=== PATIENT | female | born 1980 | race Caucasian/White ===

== ENCOUNTER 2023-08-20 11:43 | Emergency (ER) | payer BC, SELFPAY ==
[2023-08-20] VITALS (16 sets, daily range): BP systolic 99–113; BP diastolic 58–71; PULSE 88–122; RESP 16–18; TEMP 36.8–38.2; O2SAT 95–98; BMI 37.8
[2023-08-20 12:46] LABS: PCR FLU A Negative PCR FLU A (Negative); PCR FLU B Negative PCR FLU B (Negative); SARS PCR* Negative SARS-CoV-2 (Negative)
[2023-08-20 13:10] LABS: Appearance Urine Clear (Clear); Bilirubin Urine 1+ (Negative); Blood Urine 2+ (Negative); Color Urine Orange (Yellow); Glucose Urine Negative (Negative); Ketones Urine 1+ (Negative); Leukocyte Esterase Urine 1+ (Negative); Nitrite Urine Negative (Negative); Protein Urine 2+ (Negative); Specific Gravity Urine >= 1.030 (1.000-1.030); Urobilinogen Urine 0.2 (0.2-1.0); pH Urine 5.5 (5.0-8.5)
[2023-08-20 13:22] LABS: Bacteria Urine Moderate; Squamous Epithelial Cell Urine Few (None-Few)
[2023-08-20 14:15] LABS: Lactate* 1.1 mmol/L (0.5-1.9)
[2023-08-20] MEDS: 0.9 % SODIUM CHLORIDE 1000 ml 1,000 ML IV (14:15)
[2023-08-20 14:17] LABS: Basophils Absolute Auto 0.02 K/uL (0.00-0.30); Basophils Percent Auto 0.3 % (0.0-3.0); Hematocrit 37.6 % (33.0-51.0); Hemoglobin* 12.6 gm/dL (12.0-16.0); Immature Granulocytes Abs Auto 0.01 K/uL (0.00-0.30); Immature Granulocytes Pct Auto 0.1 %; Mean Corpuscular HGB Conc 34 gm/dL (32-36); Mean Corpuscular Hemoglobin 31 pg (26-34); Mean Corpuscular Volume 93 fL (80-100); Monocytes Percent Auto 0.8 % (0.0-11.0); Neutrophils Percent Auto 94.8 % (42.0-72.0); Platelet Count* 164 K/uL (140-440); RDW Coefficient of Variation % 12.6 % (11.5-15.5); Red Blood Count 4.04 m/uL (4.00-5.20); White Blood Count* 7.31 K/uL (4.50-11.00)
[2023-08-20 14:20] LABS: Anion Gap 11 mEq/L (7-15); Carbon Dioxide* 22 mmol/L (20-32); Chloride* 104 mmol/L (96-114); Glucose* 91 mg/dL (60-115); Sodium* 137 mmol/L (135-149)
[2023-08-20 14:22] LABS: Slide Review Reflex No
--- NOTE | 2023-08-20 14:26 | ED.GENADULT ---
HPI - General Adult General Date Seen: 08/20/23 Chief complaint: Fever Stated complaint: Fever, aches Time Seen by Provider: 08/20/23 13:37 Source: patient Mode of arrival: ambulatory Limitations: no limitations History of Present Illness HPI narrative: Patient is a 42-year-old generally healthy woman who presents for evaluation of fever with onset yesterday morning. She says she had taken a shower and when she got out she felt chilled. She checked her temperature and says throughout the day she had fevers from 103-107 with her tympanic thermometer. She had some chills, little bit of body aches but otherwise no focal symptoms. She specifically denies headache, cough, shortness of breath, or urinary symptoms. She did say that she noted a little bit of pelvic discomfort when she leaned forward. She has had a decreased appetite and has vomited once. No rashes or other skin changes. She has seen lots of wood ticks on an around her dogs this summer but no known deer tick exposure. Related Data Previous Rx's Medication Instructions Recorded ciprofloxacin HCl 500 mg tablet 500 mg PO BID #14 tabs 08/20/23 potassium chloride 20 mEq 20 meq PO DAILY #7 tabs 08/20/23 tablet,extended release Allergies Allergy/AdvReac Type Severity Reaction Status Date / Time No Known Drug Allergies Allergy Verified 08/20/23 11:56 Review of Systems Status of ROS: Reports: 10 or more systems reviewed and unremarkable except as noted in History and below [facility] Social History service: No Exam Narrative: Exam Narrative: Vital signs as noted above. In general, an alert, well-appearing patient. Head: Normocephalic, atraumatic. Eyes: Pupils are equal reactive. Extraocular movements are full. Conjunctivae are normal. ENT: Mucous membranes are moist. Throat is normal. Neck: Supple without lymphadenopathy. Heart: Regular rate and rhythm. No murmur or rub. Lungs: Clear bilaterally. No increased work of breathing, crackles or wheezes. Abdomen: Soft and nontender. No organomegaly. No CVA tenderness. Extremities: Well perfused. No edema. No calf tenderness. Pulses intact. Neurologic: Patient is alert and oriented to person and place. Speech is fluent. Face is symmetric. Moves all extremities equally. Affect: Normal. Skin: Warm and dry. Well perfused. Const: Vital Signs, click to edit/add: Vital Signs - 24 hr 08/20/23 11:56 08/20/23 13:32 08/20/23 13:33 Temperature 100.7 F H 98.2 F Pulse Rate 95 97 Pulse Rate [Pulse Oximeter] 122 H Respiratory Rate 18 Blood Pressure 108/62 Blood Pressure [Ri ght Upper Arm] 113/67 Pulse Oximetry 97 95 96 Oxygen Delivery Me thod Room Air 08/20/23 13:34 08/20/23 13:34 08/20/23 13:35 Temperature 98.2 F Pulse Rate 89 90 Pulse Rate [Pulse Oximeter] Respiratory Rate Blood Pressure 109/58 L Blood Pressure [Ri ght Upper Arm] Pulse Oximetry 97 96 Oxygen Delivery Me thod 08/20/23 13:45 08/20/23 14:00 08/20/23 14:01 Temperature Pulse Rate 94 88 90 Pulse Rate [Pulse Oximeter] Respiratory Rate Blood Pressure 99/58 L Blood Pressure [Ri ght Upper Arm] Pulse Oximetry 96 96 96 Oxygen Delivery Me thod 08/20/23 14:07 08/20/23 14:15 08/20/23 14:30 Temperature Pulse Rate 94 90 89 Pulse Rate [Pulse Oximeter] Respiratory Rate Blood Pressure 100/60 Blood Pressure [Ri ght Upper Arm] Pulse Oximetry 97 97 96 Oxygen Delivery Me thod 08/20/23 14:32 08/20/23 14:45 Temperature Pulse Rate 90 90 Pulse Rate [Pulse Oximeter] Respiratory Rate Blood Pressure 101/68 Blood Pressure [Ri ght Upper Arm] Pulse Oximetry 97 97 Oxygen Delivery Me thod Course Course ED Course: While waiting in triage a UA was done as well as COVID/RSV/influenza. Respiratory virus panel is negative. UA is notable for 1+ ketones, 1+ leukocyte esterase, 2-5 red cells and 5-10 white cells. Moderate bacteria. She does not have any flank pain or CVA tenderness to suggest pyelonephritis, does not specifically complain of symptoms suggestive of UTI. Her white blood cell count is normal at 7.3 although she does have a left shift with 95% neutrophils. Potassium is somewhat low at 3. She was given 50 mEq of potassium here. Our chemistry machine is down. I did get her CRP back and that is elevated at 7, but LFTs are going to be delayed at least an hour. She has already been here several hours secondary to high ER volumes and a long triage weight, and she would just as soon go home. She does not have any right upper quadrant pain or tenderness, my suspicion for cholecystitis, hepatitis, ascending cholangitis etcetera is pretty low. At this time, cause of her fever is unclear. Certainly still could be viral, discussed that the COVID test initially can be negative and free checked in a couple days maybe positive. However, given the elevated CRP and the significant left shift I do not think a bacterial cause can be entirely excluded. Urine is slightly abnormal. She has a little bit of pain in the right flank but this is chronic for her and she does not have CVA tenderness. I have relatively low suspicion of pyelonephritis but she would prefer to treat for that possibility and see how she does. Her abdominal exam is entirely benign, she does not have any abdominal or pelvic tenderness at all, making a surgical cause for her fever such as appendicits, cholecystits etc. less likely. Plan at this time is to treat with Cipro, blood cultures were obtained. Primary care follow-up in a few days if fever persists, but discussed that if fever is due to viral causes the antibiotic will not make a difference. As of right now, tick-borne illness does not seem highly likely, but would remain something to check if fever is persistent. Discussed with her if at any time she is feeling worse, has severe pain, vomiting, or other new symptoms, she should return to the emergency department for re-evaluation. Vital Signs Vital signs: Initial Vital Signs Temperature 100.7 F H 08/20/23 11:56 Temperature Source Temporal Artery Scan 08/20/23 11:56 Pulse Rate 122 H 08/20/23 11:56 Respiratory Rate 18 08/20/23 11:56 Blood Pressure 113/67 08/20/23 11:56 Blood Pressure Mean 82 08/20/23 11:56 Blood Pressure Position Sitting 08/20/23 11:56 Pulse Oximetry 97 08/20/23 11:56 Oxygen Delivery Method Room Air 08/20/23 11:56 Vital Signs Temperature 100.7 F H 08/20/23 11:56 Pulse Rate 122 H 08/20/23 11:56 Respiratory Rate 18 08/20/23 11:56 Blood Pressure 113/67 08/20/23 11:56 Pulse Oximetry 97 08/20/23 11:56 Oxygen Delivery Method Room Air 08/20/23 11:56 Temperature 98.3 F 08/20/23 15:15 Pulse Rate 91 08/20/23 15:15 Respiratory Rate 16 08/20/23 15:15 Blood Pressure 105/71 08/20/23 15:01 Pulse Oximetry 95 08/20/23 15:15 Oxygen Delivery Method Room Air 08/20/23 11:56 Medical Decision Making Lab Data Labs: Lab Results 08/20/23 08/20/23 08/20/23 Range/Units 12:00 13:00 14:10 WBC 7.31 (4.50-11.00) K/uL RBC 4.04 (4.00-5.20) m/uL Hgb 12.6 (12.0-16.0) gm/dL Hct 37.6 (33.0-51.0) % MCV 93 (80-100) fL MCH 31 (26-34) pg MCHC 34 (32-36) gm/dL RDW Coeff of [place]ya 12.6 (11.5-15.5) % Plt Count 164 (140-440) K/uL Neut % (Auto) 94.8 H (42.0-72.0) % Lymph % (Auto) 4.0 L (20-44) % [place] % (Auto) 0.8 (0.0-11.0) % Eos % (Auto) 0.0 (0.0-7.0) % Baso % (Auto) 0.3 (0.0-3.0) % Neut # (Auto) 6.90 (1.7-7.0) K/uL Lymph # (Auto) 0.30 L (0.90-2.90) K/uL [place] # (Auto) 0.10 (0.00-0.90) K/UL Eos # (Auto) 0.00 (0.00-0.50) K/uL Baso # (Auto) 0.02 (0.00-0.30) K/uL Abs Immat Gran (auto) 0.01 (0.00-0.30) K/uL Imm/Tot Granulo (auto) 0.1 % Sodium 137 (135-149) mmol/L Potassium 3.0 L (3.6-5.1) mmol/L Chloride 104 (96-114) mmol/L Carbon Dioxide 22 (20-32) mmol/L Anion Gap 11 (7-15) mEq/L BUN 15 (5-24) mg/dL Creatinine 0.9 (0.5-1.5) mg/dL Estimated Creat Clear 69.60 Estimated GFR 81 ml/min Glucose 91 (60-115) mg/dL Lactate 1.1 (0.5-1.9) mmol/L Calcium 8.8 (8.4-10.6) mg/dL Total Bilirubin 1.1 (0.1-1.5) mg/dL Direct Bilirubin 0.1 (0.0-0.5) mg/dL AST 37 H (12-35) U/L ALT 19 (4-35) U/L Alkaline Phosphatase 73 (40-150) U/L C-Reactive Protein 7.1 H (0.5-1.0) mg/dL Total Protein 7.3 (6.0-8.3) g/dL Albumin 4.1 (3.3-5.0) g/dL Urine Color [place] A (Yellow) Urine Appearance Clear (Clear) Urine pH 5.5 (5.0-8.5) Ur Specific [place] >= 1.030 (1.000-1.030) Urine Protein 2+ A (Negative) Urine Glucose (UA) Negative (Negative) Urine Ketones 1+ A (Negative) Urine Blood 2+ A (Negative) Urine Nitrite Negative (Negative) Urine Bilirubin 1+ A (Negative) Urine Urobilinogen 0.2 (0.2-1.0) Ur Leukocyte Esterase 1+ A (Negative) Urine RBC 2-5 A (0-2) Urine WBC 5-10 A (0-5) Ur Squamous Epith Cells Few (None-Few) Urine Bacteria Moderate A (None) SARS-CoV-2 (PCR) Negative SARS-CoV-2 (Negative) Influenza Type A (PCR) Negative PCR FLU A (Negative) Influenza Type B (PCR) Negative PCR FLU B (Negative) Discharge Plan Discharge Clinical Impression: Fever Condition: Stable Instructions: Fever in Adults (ED) Additional Instructions: Potassium as ordered. Antibiotic as ordered. Clinic follow-up next Thursday for persistent fever. Return to the ER at any time for significant changes such as abdominal or back pain, persistent vomiting, difficulty breathing cetera. Prescriptions: New potassium chloride 20 mEq tablet extended release 20 meq PO DAILY Qty: 7 2RF ciprofloxacin HCl 500 mg tablet 500 mg PO BID Qty: 14 0RF Follow Up/Referrals: Provider,Not a Local [Primary Care Provider] - Stand Alone Forms: [place] [facility] Info Instructions
[2023-08-20] MEDS: POTASSIUM BICARB 25 MEQ EFFERVESCENT TAB 50 MEQ PO (14:43)
[2023-08-20 14:55] LABS: Creatinine* 0.9 mg/dL (0.5-1.5); Estimated Glomerular Filt Rate 81 ml/min
[2023-08-20 14:56] LABS: Blood Urea Nitrogen* 15 mg/dL (5-24); Calcium* 8.8 mg/dL (8.4-10.6)
[2023-08-20 14:59] LABS: C Reactive Protein* 7.1 mg/dL (0.5-1.0)
[2023-08-20 15:18] LABS: Albumin* 4.1 g/dL (3.3-5.0)
[2023-08-20 15:21] LABS: Alanine Aminotransferase* 19 U/L (4-35); Alkaline Phosphatase* 73 U/L (40-150); Aspartate Amino Transferase* 37 U/L (12-35); Bilirubin Direct* 0.1 mg/dL (0.0-0.5); Bilirubin Total* 1.1 mg/dL (0.1-1.5); Total Protein* 7.3 g/dL (6.0-8.3)
== END 2023-08-20 15:36 | disposition home or self-care (01) ==
PROVIDERS: Emergency Provider Emergency Medicine
DX: R50.9 Fever, unspecified (principal)
CPT/HCPCS: 36415; 80048; 80076; 81001; 83605; 85025; 86140; 87040; 87086; 87631; 96360; 99284; A9270; J7030

== ENCOUNTER 2023-10-28 08:55 | Outpatient (CLI) | payer BC, SELFPAY | END 2023-10-28 08:56 | disposition home or self-care (01) | PROVIDERS: Visit Provider Family Medicine | DX: Z00.00 Encounter for general adult medical examination without abnormal findings (principal); E66.9 Obesity, unspecified; Z13.6 Encounter for screening for cardiovascular disorders; Z13.29 Encounter for screening for other suspected endocrine disorder | CPT/HCPCS: 80053; 80061; 84443 ==